=== PATIENT | female | born 2000 | race Caucasian/White ===

== ENCOUNTER 2023-04-19 19:39 | Inpatient (IN) ==
[2023-04-20] MEDS ORDERED: Al Hydrox/Mg Hydrox/Simet LIQ 30 ML UDC PO PRN (00:19)
[2023-04-20] MEDS: Vitamin THERAPEUTIC TAB PO SCH (10:33)
[2023-04-20] MEDS ORDERED: DULoxetine DR 60 mg CAP PO ONE (11:34)
[2023-04-20] MEDS: DULoxetine DR 60 mg CAP PO SCH (12:22)
[2023-04-21] MEDS: DULoxetine DR 60 mg CAP PO SCH (09:51)
[2023-04-21] MEDS: Vitamin THERAPEUTIC TAB PO SCH (09:51)
[2023-04-22] MEDS: Vitamin THERAPEUTIC TAB PO SCH (10:08)
[2023-04-22] MEDS: DULoxetine DR 60 mg CAP PO SCH (10:08)
[2023-04-22] MEDS ORDERED: buPROPion SR 100 mg TAB.SR PO ONE (10:36)
[2023-04-22] MEDS ORDERED: Rabies VIRUS VACCINE (RabAvert) 2.5 UNITS VIAL IM ONE (14:30)
[2023-04-23 08:25] LABS: HDL Cholesterol 45.1 mg/dL
[2023-04-23] MEDS: DULoxetine DR 60 mg CAP PO SCH (11:24)
[2023-04-23] MEDS: Vitamin THERAPEUTIC TAB PO SCH (11:24)
[2023-04-23] MEDS ORDERED: Ondansetron ODT 4 mg TAB 4 MG TAB PO PRN (16:30)
[2023-04-24] MEDS: Vitamin THERAPEUTIC TAB PO SCH (10:39)
[2023-04-24] MEDS: DULoxetine DR 60 mg CAP PO SCH (10:39)
[2023-04-25] MEDS: DULoxetine DR 60 mg CAP PO SCH (09:46)
[2023-04-25] MEDS: Vitamin THERAPEUTIC TAB PO SCH (09:46)
[2023-04-25] MEDS: OLANZapine 10 mg TAB*ODT PO SCH (20:09)
[2023-04-25] MEDS: OLANZapine 5 mg TAB *ODT PO SCH (20:09)
[2023-04-26] MEDS: Vitamin THERAPEUTIC TAB PO SCH (09:15)
[2023-04-26] MEDS: DULoxetine DR 60 mg CAP PO SCH (09:16)
[2023-04-26] MEDS ORDERED: Rabies VIRUS VACCINE (RabAvert) 2.5 UNITS VIAL IM ONE (15:00)
[2023-04-26] MEDS: OLANZapine 5 mg TAB *ODT PO SCH (21:19)
[2023-04-26] MEDS: OLANZapine 10 mg TAB*ODT PO SCH (21:19)
[2023-04-27] MEDS: Vitamin THERAPEUTIC TAB PO SCH (08:18)
[2023-04-27] MEDS: DULoxetine DR 60 mg CAP PO SCH (08:19)
[2023-04-27] MEDS: OLANZapine 10 mg TAB*ODT PO SCH (20:28)
[2023-04-27] MEDS: OLANZapine 5 mg TAB *ODT PO SCH (20:29)
[2023-04-28] MEDS: Vitamin THERAPEUTIC TAB PO SCH (09:30)
[2023-04-28] MEDS: DULoxetine DR 60 mg CAP PO SCH (09:30)
[2023-04-28] MEDS: OLANZapine 10 mg TAB*ODT PO SCH (20:27)
[2023-04-28] MEDS: OLANZapine 5 mg TAB *ODT PO SCH (20:28)
[2023-04-29] MEDS: Vitamin THERAPEUTIC TAB PO SCH (09:42)
[2023-04-29] MEDS: DULoxetine DR 60 mg CAP PO SCH (09:42)
[2023-04-29] MEDS: OLANZapine 10 mg TAB*ODT PO SCH (20:26)
[2023-04-29] MEDS: OLANZapine 5 mg TAB *ODT PO SCH (20:26)
[2023-04-30] MEDS: Vitamin THERAPEUTIC TAB PO SCH (09:32)
[2023-04-30] MEDS: DULoxetine DR 60 mg CAP PO SCH (09:32)
[2023-04-30] MEDS: OLANZapine 5 mg TAB *ODT PO SCH (20:35)
[2023-04-30] MEDS: OLANZapine 10 mg TAB*ODT PO SCH (20:35)
[2023-05-01] MEDS: Vitamin THERAPEUTIC TAB PO SCH (09:49)
[2023-05-01] MEDS: DULoxetine DR 60 mg CAP PO SCH (09:49)
[2023-05-01] MEDS: OLANZapine 10 mg TAB*ODT PO SCH (21:39)
[2023-05-01] MEDS: OLANZapine 5 mg TAB *ODT PO SCH (21:40)
[2023-05-02] MEDS: Vitamin THERAPEUTIC TAB PO SCH (09:15)
[2023-05-02] MEDS: DULoxetine DR 60 mg CAP PO SCH (09:18)
[2023-05-02 10:05] VITALS: BP 119/75
== END 2023-05-02 15:58 | disposition home or self-care (01) | DRG 750 ==
LOC: ED 19:39 → EDHOLD 22:58 → BSU 23:15
PROVIDERS: ADMIT Psychiatry & Neurology Psychiatry; ATTEND Psychiatry & Neurology Psychiatry